=== PATIENT | female | born 1945 | race Caucasian/White ===

== ENCOUNTER 2018-02-25 20:44 | Inpatient (IN) | payer OTHER ==
[2018-02-25] MEDS ORDERED: ONDANSETRON 4 MG INJ (20:57)
[2018-02-25] MEDS: HYDROmorphONE 0.5 MG/0.5 ML SYG IV ×2 (21:02→22:40)
[2018-02-25] MEDS: ONDANSETRON 4 MG INJ IV ×3 (21:03→22:41)
[2018-02-25 21:20] LABS: ADD MAN DIFF? NO
[2018-02-25 21:22] LABS: BASOPHILS % 0.6 % (0.0-2.0); EOSINOPHILS # 0.7 10^3/ul (0.0-0.5); HEMATOCRIT 31.1 % (37.0-47.0); HEMOGLOBIN 10.1 g/dl (12.0-16.0); LYMPHOCYTES # 2.4 10^3/ul (0.8-2.9); LYMPHOCYTES % 34.5 % (15.0-51.0); MEAN CORPUSCULAR HEMOGLOBIN 27.7 pg (29.0-33.0); MEAN CORPUSCULAR HGB CONC 32.5 g/dl (32.0-37.0); MEAN CORPUSCULAR VOLUME 85.2 fl (82.0-101.0); MEAN PLATELET VOLUME 10.2 fl (7.4-10.4); MONOCYTE # 0.6 10^3/ul (0.3-0.9); NEUTROPHIL # 3.2 10^3/ul (1.6-7.5); NEUTROPHILS % 46.5 % (39.0-77.0); PLATELET COUNT 230 10^3/UL (140-415); RED BLOOD COUNT 3.65 10^6/ul (4.20-5.40); RED CELL DISTRIBUTION WIDTH 13.6 % (11.5-14.5)
[2018-02-25] MEDS: SOD CHLORIDE 0.9% 1,000 ML IV (21:22)
[2018-02-25 21:29] LABS: INR 0.93; PROTIME 12.5 Sec (11.9-14.9)
[2018-02-25 21:30] LABS: ALANINE AMINOTRANSFERASE 23 IU/L (13-69); ALBUMIN 3.4 g/dl (3.3-4.9); ALBUMIN/GLOBULIN RATIO 1.06; ALKALINE PHOSPHATASE 77 IU/L (42-121); ANION GAP 18 (8-16); ASPARTATE AMINO TRANSFERASE 20 IU/L (15-46); BILIRUBIN,INDIRECT 0.4 mg/dl (0-1.1); BILIRUBIN,TOTAL 0.4 mg/dl (0.2-1.3); BLOOD UREA NITROGEN 34 mg/dl (7-20); CALCIUM 9.3 mg/dl (8.4-10.2); CARBON DIOXIDE 21 mmol/L (21-31); CHLORIDE 104 mmol/L (97-110); CREATININE 1.35 mg/dl (0.44-1.00); GLUCOSE 145 mg/dl (70-220); LIPASE 1433 U/L (23-300); PARTIAL THROMBOPLASTIN TIME 31.3 Sec (23.0-35.0); SODIUM 138 mmol/L (135-144); TOTAL PROTEIN 6.6 g/dl (6.1-8.1)
[2018-02-25 21:41] LABS: TROPONIN-I < 0.012 ng/ml (0.000-0.120)
[2018-02-25] MEDS ORDERED: KETOROLAC 30 MG INJ (21:59)
[2018-02-25] MEDS: HYDROmorphONE 1 MG/ML SYG IV (22:11)
[2018-02-25] MEDS: KETOROLAC 30 MG INJ IV (22:24)
[2018-02-25] MEDS: KETOROLAC 15 MG INJ IV (22:41)
[2018-02-26] MEDS ORDERED: NACL 0.9% 3 ML SYG IV
[2018-02-26] MEDS ORDERED: ALBUTEROL/IPRATROPIUM (NEB) 3 ML AMP HHN
[2018-02-26] MEDS ORDERED: GLUCOSE GEL 15 GRAM TUBE BUCCAL (00:15)
[2018-02-26] MEDS ORDERED: GLUCAGON 1 MG INJ IM (00:15)
[2018-02-26] MEDS ORDERED: GLUCOSE GEL 15 GRAM TUBE PO ×2 (00:15)
[2018-02-26] MEDS ORDERED: DEXTROSE 50% 50 ML SYRINGE IV ×2 (00:15)
[2018-02-26] MEDS: DEXTROSE 5%-0.45% NACL 1,000 ML IV (01:01)
[2018-02-26] MEDS: morphine 2 MG INJ IV ×2 (01:09→08:11)
[2018-02-26] MEDS: ACCU-CHEK XX ×3 (01:23→21:40)
[2018-02-26] MEDS: INSULIN ASPART [NOVOLOG] 3 ML PEN SC ×4 (07:50→21:42)
[2018-02-26 11:30] LABS: ADD MAN DIFF? NO
[2018-02-26 11:38] LABS: BASOPHILS % 0.5 % (0.0-2.0); EOSINOPHILS # 0.2 10^3/ul (0.0-0.5); EOSINOPHILS % 3.5 % (0.0-7.0); HEMATOCRIT 29.6 % (37.0-47.0); HEMOGLOBIN 9.4 g/dl (12.0-16.0); LYMPHOCYTES # 1.2 10^3/ul (0.8-2.9); LYMPHOCYTES % 19.4 % (15.0-51.0); MEAN CORPUSCULAR HEMOGLOBIN 27.4 pg (29.0-33.0); MEAN CORPUSCULAR HGB CONC 31.8 g/dl (32.0-37.0); MEAN CORPUSCULAR VOLUME 86.3 fl (82.0-101.0); MEAN PLATELET VOLUME 10.4 fl (7.4-10.4); MONOCYTE # 0.5 10^3/ul (0.3-0.9); MONOCYTES % 8.3 % (0.0-11.0); NEUTROPHIL # 4.1 10^3/ul (1.6-7.5); NEUTROPHILS % 67.8 % (39.0-77.0); PLATELET COUNT 199 10^3/UL (140-415); RED BLOOD COUNT 3.43 10^6/ul (4.20-5.40); RED CELL DISTRIBUTION WIDTH 13.8 % (11.5-14.5)
[2018-02-26 12:17] LABS: ALANINE AMINOTRANSFERASE 29 IU/L (13-69); ALBUMIN 3.1 g/dl (3.3-4.9); ALBUMIN/GLOBULIN RATIO 1.06; ALKALINE PHOSPHATASE 74 IU/L (42-121); ANION GAP 13 (8-16); ASPARTATE AMINO TRANSFERASE 20 IU/L (15-46); BILIRUBIN,INDIRECT 0.7 mg/dl (0-1.1); BILIRUBIN,TOTAL 0.7 mg/dl (0.2-1.3); BLOOD UREA NITROGEN 32 mg/dl (7-20); CALCIUM 8.5 mg/dl (8.4-10.2); CARBON DIOXIDE 23 mmol/L (21-31); CHLORIDE 105 mmol/L (97-110); CREATININE 1.27 mg/dl (0.44-1.00); GLUCOSE 196 mg/dl (70-220); MAGNESIUM 1.5 mg/dl (1.7-2.5); PHOSPHORUS 3.5 mg/dl (2.5-4.9); POTASSIUM 4.7 mmol/L (3.5-5.1); SODIUM 136 mmol/L (135-144)
[2018-02-26] MEDS: LINAGLIPTIN 5 MG TABLET PO (12:42)
[2018-02-26] MEDS: LISINOPRIL 10 MG TAB PO (12:48)
[2018-02-26] MEDS: LACTATED RINGER'S 500 ML IV ×2 (12:53→19:10)
[2018-02-26 12:59] LABS: ADD UMIC NO; UR ASCORBIC ACID NEGATIVE (NEGATIVE); UR BILIRUBIN (Dip) NEGATIVE (NEGATIVE); UR BLOOD (Dip) NEGATIVE (NEGATIVE); UR CLARITY SLIGHTLY CLOUDY (CLEAR); UR COLOR YELLOW (YELLOW); UR GLUCOSE (Dip) NEGATIVE (NEGATIVE); UR KETONES (Dip) NEGATIVE (NEGATIVE); UR LEUKOCYTE ESTERASE (Dip) NEGATIVE Leu/ul (NEGATIVE); UR NITRITE (Dip) NEGATIVE (NEGATIVE); UR RBC 1 /HPF (0-5); UR SPECIFIC GRAVITY (Dip) 1.012 (1.003-1.030); UR TOTAL PROTEIN (Dip) NEGATIVE (NEGATIVE); UR UROBILINOGEN (Dip) NEGATIVE (NEGATIVE); UR WBC 0 /HPF (0-5)
[2018-02-26 13:02] LABS: IRON 73 ug/dl (35-150)
[2018-02-26 13:24] LABS: % IRON SATURATION 23 % SAT (22-52); TOTAL IRON BINDING CAPACITY 311 ug/dl (241-421)
[2018-02-26 14:33] LABS: ALANINE AMINOTRANSFERASE 23 IU/L (13-69); ALBUMIN 2.8 g/dl (3.3-4.9); ALBUMIN/GLOBULIN RATIO 1.03; ALKALINE PHOSPHATASE 62 IU/L (42-121); AMYLASE 125 U/L (11-123); ANION GAP 14 (8-16); ASPARTATE AMINO TRANSFERASE 20 IU/L (15-46); BILIRUBIN,INDIRECT 0.7 mg/dl (0-1.1); BILIRUBIN,TOTAL 0.7 mg/dl (0.2-1.3); BLOOD UREA NITROGEN 31 mg/dl (7-20); CALCIUM 8.3 mg/dl (8.4-10.2); CARBON DIOXIDE 21 mmol/L (21-31); CHLORIDE 105 mmol/L (97-110); CREATININE 1.21 mg/dl (0.44-1.00); GLUCOSE 163 mg/dl (70-220); LIPASE 347 U/L (23-300); POTASSIUM 4.6 mmol/L (3.5-5.1); SODIUM 135 mmol/L (135-144); TOTAL PROTEIN 5.5 g/dl (6.1-8.1)
[2018-02-26 15:21] LABS: HEPATITIS C VIRAL ANTIBODY NEGATIVE (NEGATIVE)
[2018-02-26] MEDS: HYDROmorphONE 1 MG/ML SYG IV ×2 (15:45→20:40)
[2018-02-26] MEDS: ONDANSETRON 4 MG INJ IV (17:10)
[2018-02-26] MEDS: ATORVASTATIN 40 MG TAB PO (20:39)
[2018-02-26] MEDS ORDERED: NON-FORMULARY/PATIENT OWN MED (Carvedilol* 3.125 MG) PO (21:00)
[2018-02-27] MEDS: ACCU-CHEK XX ×5 (02:00→20:55)
[2018-02-27] MEDS: LACTATED RINGER'S 1,000 ML IV (02:06)
[2018-02-27 03:13] LABS: ADD MAN DIFF? NO
[2018-02-27 03:15] LABS: WHITE BLOOD COUNT 6.8 10^3/ul (4.8-10.8)
[2018-02-27 03:15] LABS: BASOPHILS % 0.3 % (0.0-2.0); EOSINOPHILS # 0.3 10^3/ul (0.0-0.5); EOSINOPHILS % 4.3 % (0.0-7.0); HEMATOCRIT 34.7 % (37.0-47.0); HEMOGLOBIN 11.1 g/dl (12.0-16.0); LYMPHOCYTES # 1.7 10^3/ul (0.8-2.9); LYMPHOCYTES % 24.7 % (15.0-51.0); MEAN CORPUSCULAR HEMOGLOBIN 27.5 pg (29.0-33.0); MEAN CORPUSCULAR VOLUME 85.9 fl (82.0-101.0); MONOCYTE # 0.6 10^3/ul (0.3-0.9); MONOCYTES % 8.4 % (0.0-11.0); NEUTROPHIL # 4.2 10^3/ul (1.6-7.5); NEUTROPHILS % 61.9 % (39.0-77.0); PLATELET COUNT 162 10^3/UL (140-415); RED BLOOD COUNT 4.04 10^6/ul (4.20-5.40); RED CELL DISTRIBUTION WIDTH 13.6 % (11.5-14.5)
[2018-02-27] MEDS: LEVOTHYROXINE 75 MCG TAB PO (06:24)
[2018-02-27] MEDS ORDERED: EPHEDrine SULFATE 50 MG/5 ML SYG (07:00)
[2018-02-27] MEDS ORDERED: ETOMIDATE 20 MG INJ (07:00)
[2018-02-27] MEDS ORDERED: NEOSTIGMINE 3 MG/3 ML SYRINGE (07:00)
[2018-02-27] MEDS: HYDROmorphONE 1 MG/ML SYG IV ×2 (07:13→09:58)
[2018-02-27] MEDS: LISINOPRIL 10 MG TAB PO (09:00)
[2018-02-27] MEDS: LINAGLIPTIN 5 MG TABLET PO (09:00)
[2018-02-27] MEDS: INSULIN ASPART [NOVOLOG] 3 ML PEN SC ×4 (09:34→20:54)
[2018-02-27] MEDS: ONDANSETRON 4 MG INJ IV ×2 (10:51→15:36)
[2018-02-27] MEDS ORDERED: HYDROmorphONE 1 MG/5 ML IV SYRINGE IV ×2 (12:00)
[2018-02-27] MEDS ORDERED: LABETALOL HCL 20MG INJ IV (12:00)
[2018-02-27] MEDS ORDERED: hydrALAzine 20 MG INJ IV (12:00)
[2018-02-27] MEDS ORDERED: EPHEDrine SULFATE 50 MG/5 ML SYG IV (12:00)
[2018-02-27] MEDS ORDERED: ONDANSETRON 4 MG INJ (12:26)
[2018-02-27] MEDS ORDERED: METOCLOPRAMIDE 10 MG INJ (12:26)
[2018-02-27] MEDS ORDERED: MIDAZOLAM 1 MG/ML 2 ML INJ (12:26)
[2018-02-27] MEDS ORDERED: HYDROmorphONE 2 MG/ML SYG (12:26)
[2018-02-27] MEDS ORDERED: ROCURONIUM 50 MG INJ (12:27)
[2018-02-27] MEDS ORDERED: ROPIVACAINE 0.5 % 30 ML VIAL (12:27)
[2018-02-27] MEDS ORDERED: FENTAnyl 50 MCG/ML VIAL (12:38)
[2018-02-27] MEDS ORDERED: CEFAZOLIN 1 GM INJ (13:16)
[2018-02-27] MEDS ORDERED: GLYCOPYRROLATE 0.4 MG INJ (13:16)
[2018-02-27] MEDS: POLYMYXIN/BACITRACIN 1L IRRIG (13:21)
[2018-02-27] MEDS ORDERED: DEXTROSE 5%-LR 1,000 ML IV (14:49)
[2018-02-27] MEDS ORDERED: CEFAZOLIN 1 GM/50 ML (PMX) 50 ML IVPB (15:00)
[2018-02-27] MEDS ORDERED: NACL 0.9% 3 ML SYG IV (15:00)
[2018-02-27] MEDS: DIPHENHYDRAMINE 50 MG INJ IV (15:28)
[2018-02-27] MEDS: MEPERIDINE 25 MG INJ IV (15:35)
[2018-02-27] MEDS: HYDROmorphONE 1 MG/5 ML IV SYRINGE IV (16:09)
[2018-02-27] MEDS: SOD CHLORIDE 0.9% 1,000 ML IV (16:53)
[2018-02-27] MEDS: ATORVASTATIN 40 MG TAB PO (20:46)
[2018-02-27] MEDS: CEFAZOLIN 1 GM/50 ML (PMX) 50 ML IVPB (20:46)
[2018-02-28] MEDS: HYDROmorphONE 2 MG/ML SYG IV ×2 (01:00→08:18)
[2018-02-28] MEDS: ACCU-CHEK XX ×5 (02:34→20:16)
[2018-02-28 03:52] LABS: TROPONIN-I < 0.012 ng/ml (0.000-0.120)
[2018-02-28] MEDS: CEFAZOLIN 1 GM/50 ML (PMX) 50 ML IVPB ×2 (05:24→12:17)
[2018-02-28] MEDS: LEVOTHYROXINE 75 MCG TAB PO ×2 (06:11→08:18)
[2018-02-28] MEDS: LISINOPRIL 10 MG TAB PO (08:18)
[2018-02-28] MEDS: LINAGLIPTIN 5 MG TABLET PO (08:18)
[2018-02-28] MEDS: INSULIN ASPART [NOVOLOG] 3 ML PEN SC ×6 (08:27→20:16)
[2018-02-28] MEDS: ENOXAPARIN 40 MG/0.4 ML SYG SC (08:33)
[2018-02-28] MEDS: SOD CHLORIDE 0.9% 1,000 ML IV (09:40)
[2018-02-28 12:18] LABS: ADD MAN DIFF? NO
[2018-02-28 12:20] LABS: WHITE BLOOD COUNT 6.5 10^3/ul (4.8-10.8)
[2018-02-28 12:20] LABS: BASOPHILS % 0.3 % (0.0-2.0); EOSINOPHILS # 0.2 10^3/ul (0.0-0.5); EOSINOPHILS % 2.6 % (0.0-7.0); HEMATOCRIT 22.4 % (37.0-47.0); HEMOGLOBIN 7.3 g/dl (12.0-16.0); LYMPHOCYTES # 1.4 10^3/ul (0.8-2.9); LYMPHOCYTES % 21.5 % (15.0-51.0); MEAN CORPUSCULAR HEMOGLOBIN 27.9 pg (29.0-33.0); MEAN CORPUSCULAR HGB CONC 32.6 g/dl (32.0-37.0); MEAN CORPUSCULAR VOLUME 85.5 fl (82.0-101.0); MEAN PLATELET VOLUME 10.7 fl (7.4-10.4); MONOCYTE # 0.7 10^3/ul (0.3-0.9); MONOCYTES % 10.6 % (0.0-11.0); NEUTROPHIL # 4.2 10^3/ul (1.6-7.5); NEUTROPHILS % 64.7 % (39.0-77.0); PLATELET COUNT 153 10^3/UL (140-415); RED BLOOD COUNT 2.62 10^6/ul (4.20-5.40)
[2018-02-28 12:30] LABS: HEMOGLOBIN A1C 7.3 % (0-5.9)
[2018-02-28 12:42] LABS: CHOL/HDL RATIO 1.4 RATIO; HDL CHOLESTEROL 52 mg/dl (33-92); LDL CHOLESTEROL,CALCULATED 7 mg/dl; TRIGLYCERIDES 79 mg/dl (0-149)
[2018-02-28 12:42] LABS: CHOLESTEROL 75 mg/dl (100-200)
[2018-02-28 12:44] LABS: ALANINE AMINOTRANSFERASE 31 IU/L (13-69); ALBUMIN 2.5 g/dl (3.3-4.9); ALBUMIN/GLOBULIN RATIO 0.96; ALKALINE PHOSPHATASE 53 IU/L (42-121); AMYLASE 48 U/L (11-123); ANION GAP 12 (8-16); ASPARTATE AMINO TRANSFERASE 31 IU/L (15-46); BILIRUBIN,INDIRECT 0.7 mg/dl (0-1.1); BILIRUBIN,TOTAL 0.7 mg/dl (0.2-1.3); BLOOD UREA NITROGEN 22 mg/dl (7-20); CALCIUM 8.2 mg/dl (8.4-10.2); CARBON DIOXIDE 23 mmol/L (21-31); CHLORIDE 103 mmol/L (97-110); CREATINE KINASE 484 IU/L (23-200); CREATININE 1.19 mg/dl (0.44-1.00); GLUCOSE 201 mg/dl (70-220); LIPASE 71 U/L (23-300); MAGNESIUM 1.3 mg/dl (1.7-2.5); PHOSPHORUS 3.8 mg/dl (2.5-4.9); POTASSIUM 4.5 mmol/L (3.5-5.1); SODIUM 133 mmol/L (135-144); TOTAL PROTEIN 5.1 g/dl (6.1-8.1)
[2018-02-28 12:57] LABS: CK INDEX 0.7; CK-MB 3.31 ng/ml (0.0-2.4); TROPONIN-I 0.025 ng/ml (0.000-0.120)
[2018-02-28 13:01] LABS: FREE THYROXINE INDEX (Calc) 3.53 ug/ml (0.65-3.89); T3 UPTAKE 41.5 % (23.5-40.5); T4 (THYROXINE) 8.5 ug/dl (5.5-11.0)
[2018-02-28] MEDS: HYDROmorphONE 1 MG/ML SYG IV (14:43)
[2018-02-28] MEDS ORDERED: HYDROmorphONE 2 MG TAB PO ×2 (16:30)
[2018-02-28] MEDS: morphine 2 MG INJ IV ×2 (17:46→21:19)
[2018-02-28] MEDS: ATORVASTATIN 40 MG TAB PO (20:11)
[2018-02-28] MEDS: HYDROCODONE/APAP (5/325) TAB PO (20:11)
[2018-03-01] MEDS: MAGNESIUM SULFATE 3 GM in DEXTROSE 5% 100 ML IVPB (01:01)
[2018-03-01] MEDS: morphine 2 MG INJ IV ×4 (01:22→18:14)
[2018-03-01] MEDS: INSULIN ASPART [NOVOLOG] 3 ML PEN SC ×8 (01:43→21:00)
[2018-03-01] MEDS: ACCU-CHEK XX ×5 (01:44→21:23)
[2018-03-01] MEDS: SOD CHLORIDE 0.9% 1,000 ML IV ×2 (02:20→19:31)
[2018-03-01] MEDS: LEVOTHYROXINE 75 MCG TAB PO (06:08)
[2018-03-01 06:56] LABS: ADD MAN DIFF? NO
[2018-03-01 07:01] LABS: WHITE BLOOD COUNT 5.4 10^3/ul (4.8-10.8)
[2018-03-01 07:01] LABS: ABNORMAL IP MESSAGE 1; BASOPHILS % 0.4 % (0.0-2.0); EOSINOPHILS # 0.2 10^3/ul (0.0-0.5); EOSINOPHILS % 2.8 % (0.0-7.0); HEMATOCRIT 20.4 % (37.0-47.0); LYMPHOCYTES # 1.2 10^3/ul (0.8-2.9); MEAN CORPUSCULAR HGB CONC 31.9 g/dl (32.0-37.0); MEAN CORPUSCULAR VOLUME 87.9 fl (82.0-101.0); MEAN PLATELET VOLUME 10.8 fl (7.4-10.4); MONOCYTE # 0.5 10^3/ul (0.3-0.9); MONOCYTES % 9.4 % (0.0-11.0); NEUTROPHIL # 3.5 10^3/ul (1.6-7.5); RED BLOOD COUNT 2.32 10^6/ul (4.20-5.40)
[2018-03-01 07:11] LABS: HEMOGLOBIN 6.5 g/dl (12.0-16.0); PLATELET COUNT 113 10^3/UL (140-415); POSITIVE DIFF @See below
[2018-03-01 07:36] LABS: ALANINE AMINOTRANSFERASE 17 IU/L (13-69); ALBUMIN 2.6 g/dl (3.3-4.9); ALKALINE PHOSPHATASE 54 IU/L (42-121); ASPARTATE AMINO TRANSFERASE 46 IU/L (15-46); BILIRUBIN,INDIRECT 0.5 mg/dl (0-1.1); BILIRUBIN,TOTAL 0.5 mg/dl (0.2-1.3)
[2018-03-01 07:40] LABS: ANION GAP 10 (8-16); BLOOD UREA NITROGEN 15 mg/dl (7-20); CARBON DIOXIDE 23 mmol/L (21-31); CHLORIDE 104 mmol/L (97-110); CREATININE 1.06 mg/dl (0.44-1.00); GLUCOSE 191 mg/dl (70-220); POTASSIUM 4.2 mmol/L (3.5-5.1); SODIUM 133 mmol/L (135-144)
[2018-03-01] MEDS ORDERED: INSULIN GLARGINE [LANTus] (100 UNITS/ML) SYG SC (08:00)
[2018-03-01 08:12] LABS: ANISOCYTOSIS 1+ (0-0); BAND NEUTROPHILS #M 0.1 10^3/ul (0.0-0.6); BAND NEUTROPHILS % (M) 3 % (0-4); BASOPHILS % (M) 1 % (0-2); BURR CELLS 1+ (0-0); EOSINOPHILS % (M) 3 % (0-7); LYMPHOCYTES #M 1.5 10^3/ul (0.8-2.9); LYMPHOCYTES % (M) 28 % (15-51); MICROCYTOSIS 1+ (0-0); MONOCYTE #M 0.2 10^3/ul (0.3-0.9); MONOCYTES % (M) 5 % (0-11); OVALOCYTES 1+ (0-0); PLATELET ESTIMATE DECREASED; POIKILOCYTOSIS 1+ (0-0); POLYCHROMASIA 1+ (0-0); SEG NEUT #M 3.2 10^3/ul (1.6-7.5); SEGMENTED NEUTROPHILS (M) % 60 % (39-77); SMUDGE%M 84 % (0-0)
[2018-03-01] MEDS: INSULIN GLARGINE [LANTus] (100 UNITS/ML) SYG SC (08:29)
[2018-03-01] MEDS: ENOXAPARIN 40 MG/0.4 ML SYG SC (08:41)
[2018-03-01] MEDS: IODIXANOL LOCM 100 ML BTL (08:52)
[2018-03-01] MEDS: SOD CHLORIDE 0.9% 100 ML (08:52)
[2018-03-01] MEDS: LINAGLIPTIN 5 MG TABLET PO (09:21)
[2018-03-01] MEDS: LISINOPRIL 10 MG TAB PO (09:58)
[2018-03-01 10:42] LABS: CREATINE KINASE 502 IU/L (23-200)
[2018-03-01 10:55] LABS: CK INDEX 3.5
[2018-03-01] MEDS: FUROSEMIDE 20 MG INJ IV (13:00)
[2018-03-01 13:38] LABS: IMMEDIATE SPIN CROSSMATCH 1 4
[2018-03-01] MEDS: PANTOPRAZOLE (EC) 40 MG TAB PO ×2 (14:14→21:17)
[2018-03-01] MEDS: ONDANSETRON 4 MG INJ IV (18:41)
[2018-03-01] MEDS: ATORVASTATIN 40 MG TAB PO (21:17)
[2018-03-01] MEDS: AL HYDROX/MG HYDROX/SIMETH 30 ML CUP PO (23:44)
[2018-03-02 00:28] LABS: IMMEDIATE SPIN CROSSMATCH 1 2
[2018-03-02] MEDS: morphine 2 MG INJ IV ×3 (00:28→13:11)
[2018-03-02] MEDS: ACCU-CHEK XX ×4 (02:00→20:37)
[2018-03-02] MEDS: PANTOPRAZOLE (EC) 40 MG TAB PO ×2 (06:11→18:29)
[2018-03-02] MEDS: LEVOTHYROXINE 75 MCG TAB PO (06:11)
[2018-03-02 06:16] LABS: ADD MAN DIFF? NO
[2018-03-02 06:30] LABS: BASOPHILS % 0.2 % (0.0-2.0); EOSINOPHILS # 0.1 10^3/ul (0.0-0.5); EOSINOPHILS % 1.2 % (0.0-7.0); HEMATOCRIT 28.6 % (37.0-47.0); HEMOGLOBIN 9.5 g/dl (12.0-16.0); LYMPHOCYTES % 15.1 % (15.0-51.0); MEAN CORPUSCULAR HEMOGLOBIN 28.6 pg (29.0-33.0); MEAN CORPUSCULAR HGB CONC 33.2 g/dl (32.0-37.0); MEAN CORPUSCULAR VOLUME 86.1 fl (82.0-101.0); MEAN PLATELET VOLUME 10.4 fl (7.4-10.4); MONOCYTE # 0.7 10^3/ul (0.3-0.9); MONOCYTES % 9.9 % (0.0-11.0); NEUTROPHIL # 4.8 10^3/ul (1.6-7.5); NEUTROPHILS % 73.3 % (39.0-77.0); PLATELET COUNT 138 10^3/UL (140-415); RED BLOOD COUNT 3.32 10^6/ul (4.20-5.40)
[2018-03-02 06:30] LABS: WHITE BLOOD COUNT 6.6 10^3/ul (4.8-10.8)
[2018-03-02 07:38] LABS: ANION GAP 10 (8-16); BLOOD UREA NITROGEN 13 mg/dl (7-20); CALCIUM 7.6 mg/dl (8.4-10.2); CARBON DIOXIDE 24 mmol/L (21-31); CHLORIDE 104 mmol/L (97-110); CREATININE 1.04 mg/dl (0.44-1.00); GLUCOSE 147 mg/dl (70-220); POTASSIUM 3.5 mmol/L (3.5-5.1); SODIUM 134 mmol/L (135-144)
[2018-03-02] MEDS: INSULIN ASPART [NOVOLOG] 3 ML PEN SC ×7 (07:55→20:37)
[2018-03-02] MEDS: INSULIN GLARGINE [LANTus] (100 UNITS/ML) SYG SC (08:31)
[2018-03-02] MEDS: LINAGLIPTIN 5 MG TABLET PO (09:14)
[2018-03-02] MEDS: ASPIRIN (EC) 81 MG TAB PO (09:14)
[2018-03-02] MEDS: LISINOPRIL 10 MG TAB PO (09:15)
[2018-03-02] MEDS: ENOXAPARIN 40 MG/0.4 ML SYG SC (09:20)
[2018-03-02 11:05] LABS: ADD MAN DIFF? NO
[2018-03-02 11:07] LABS: BASOPHILS % 0.3 % (0.0-2.0); EOSINOPHILS # 0.1 10^3/ul (0.0-0.5); EOSINOPHILS % 1.9 % (0.0-7.0); HEMOGLOBIN 10.5 g/dl (12.0-16.0); LYMPHOCYTES # 0.9 10^3/ul (0.8-2.9); LYMPHOCYTES % 12.2 % (15.0-51.0); MEAN CORPUSCULAR HEMOGLOBIN 29.1 pg (29.0-33.0); MEAN CORPUSCULAR HGB CONC 33.9 g/dl (32.0-37.0); MEAN CORPUSCULAR VOLUME 85.9 fl (82.0-101.0); MEAN PLATELET VOLUME 10.4 fl (7.4-10.4); MONOCYTE # 0.7 10^3/ul (0.3-0.9); MONOCYTES % 10.1 % (0.0-11.0); NEUTROPHIL # 5.2 10^3/ul (1.6-7.5); NEUTROPHILS % 75.1 % (39.0-77.0); PLATELET COUNT 147 10^3/UL (140-415); RED BLOOD COUNT 3.61 10^6/ul (4.20-5.40); RED CELL DISTRIBUTION WIDTH 14.1 % (11.5-14.5)
[2018-03-02 11:23] LABS: CREATINE KINASE 296 IU/L (23-200)
[2018-03-02 11:36] LABS: CK INDEX 2.1; CK-MB 6.25 ng/ml (0.0-2.4)
[2018-03-02] MEDS: SOD CHLORIDE 0.9% 1,000 ML IV (14:47)
[2018-03-02] MEDS: LORAZEPAM 2 MG INJ IV (15:03)
[2018-03-02] MEDS: ATORVASTATIN 80 MG TAB PO (20:28)
[2018-03-02] MEDS: ACETAMINOPHEN 1000MG/100ML IV 100 ML IVPB (20:28)
[2018-03-02] MEDS: SENNA TAB PO (20:28)
[2018-03-02] MEDS: DOCUSATE SODIUM 100 MG CAP PO (20:28)
[2018-03-02] MEDS: METOPROLOL 25 MG TAB PO (20:29)
[2018-03-02] MEDS: morphine 4 MG/ML VIAL IV (20:29)
[2018-03-03] MEDS: ACCU-CHEK XX ×5 (01:25→21:03)
[2018-03-03] MEDS: ACETAMINOPHEN 1000MG/100ML IV 100 ML IVPB ×3 (04:16→18:23)
[2018-03-03] MEDS: SOD CHLORIDE 0.9% 1,000 ML IV ×2 (05:06→21:03)
[2018-03-03] MEDS: PANTOPRAZOLE (EC) 40 MG TAB PO ×2 (05:06→17:41)
[2018-03-03 05:34] LABS: ADD MAN DIFF? NO
[2018-03-03 05:37] LABS: WHITE BLOOD COUNT 5.4 10^3/ul (4.8-10.8)
[2018-03-03 05:37] LABS: BASOPHILS % 0.6 % (0.0-2.0); EOSINOPHILS # 0.2 10^3/ul (0.0-0.5); EOSINOPHILS % 4.4 % (0.0-7.0); HEMATOCRIT 28.1 % (37.0-47.0); HEMOGLOBIN 9.5 g/dl (12.0-16.0); LYMPHOCYTES # 0.9 10^3/ul (0.8-2.9); LYMPHOCYTES % 17.3 % (15.0-51.0); MEAN CORPUSCULAR HGB CONC 33.8 g/dl (32.0-37.0); MEAN CORPUSCULAR VOLUME 85.7 fl (82.0-101.0); MONOCYTE # 0.5 10^3/ul (0.3-0.9); MONOCYTES % 8.3 % (0.0-11.0); NEUTROPHIL # 3.8 10^3/ul (1.6-7.5); PLATELET COUNT 155 10^3/UL (140-415); RED BLOOD COUNT 3.28 10^6/ul (4.20-5.40); RED CELL DISTRIBUTION WIDTH 14.2 % (11.5-14.5)
[2018-03-03 05:59] LABS: MAGNESIUM 1.8 mg/dl (1.7-2.5)
[2018-03-03 05:59] LABS: ANION GAP 9 (8-16); BLOOD UREA NITROGEN 11 mg/dl (7-20); CALCIUM 7.6 mg/dl (8.4-10.2); CARBON DIOXIDE 26 mmol/L (21-31); CHLORIDE 105 mmol/L (97-110); CREATININE 1.01 mg/dl (0.44-1.00); GLUCOSE 103 mg/dl (70-220); POTASSIUM 3.5 mmol/L (3.5-5.1); SODIUM 136 mmol/L (135-144)
[2018-03-03] MEDS: LEVOTHYROXINE 75 MCG TAB PO (06:22)
[2018-03-03] MEDS: INSULIN ASPART [NOVOLOG] 3 ML PEN SC ×7 (07:35→21:00)
[2018-03-03] MEDS: INSULIN GLARGINE [LANTus] (100 UNITS/ML) SYG SC (07:54)
[2018-03-03] MEDS: LINAGLIPTIN 5 MG TABLET PO (08:00)
[2018-03-03] MEDS: DOCUSATE SODIUM 100 MG CAP PO ×2 (08:00→21:00)
[2018-03-03] MEDS: LISINOPRIL 10 MG TAB PO (08:00)
[2018-03-03] MEDS: METOPROLOL 25 MG TAB PO ×2 (08:02→21:02)
[2018-03-03 11:07] LABS: CREATINE KINASE 164 IU/L (23-200)
[2018-03-03 11:20] LABS: CK INDEX 1.8; CK-MB 2.87 ng/ml (0.0-2.4)
[2018-03-03] MEDS: CLOPIDOGREL 75 MG TAB PO (12:05)
[2018-03-03] MEDS: POTASSIUM CHLORIDE 20 MEQ POWDER FOR ORAL SOLN PO (12:05)
[2018-03-03] MEDS: ASPIRIN 81 MG TAB PO (12:05)
[2018-03-03] MEDS: MAGNESIUM SULFATE 2 GM/50 ML 50 ML IVPB (12:06)
[2018-03-03] MEDS: ATORVASTATIN 80 MG TAB PO (21:00)
[2018-03-03] MEDS: SENNA TAB PO (21:02)
[2018-03-03] MEDS: HYDROCODONE/APAP (7.5/325) TAB PO (21:38)
[2018-03-03] MEDS: LORAZEPAM 2 MG INJ IV (21:55)
[2018-03-04] MEDS: ACCU-CHEK XX ×5 (02:29→20:40)
[2018-03-04 05:03] LABS: ADD MAN DIFF? NO
[2018-03-04 05:04] LABS: BASOPHILS % 0.6 % (0.0-2.0); EOSINOPHILS # 0.3 10^3/ul (0.0-0.5); EOSINOPHILS % 6.3 % (0.0-7.0); HEMATOCRIT 35.7 % (37.0-47.0); HEMOGLOBIN 11.7 g/dl (12.0-16.0); LYMPHOCYTES # 0.9 10^3/ul (0.8-2.9); LYMPHOCYTES % 17.4 % (15.0-51.0); MEAN CORPUSCULAR HEMOGLOBIN 28.5 pg (29.0-33.0); MEAN CORPUSCULAR HGB CONC 32.8 g/dl (32.0-37.0); MEAN CORPUSCULAR VOLUME 86.9 fl (82.0-101.0); MEAN PLATELET VOLUME 11.7 fl (7.4-10.4); MONOCYTE # 0.6 10^3/ul (0.3-0.9); MONOCYTES % 10.4 % (0.0-11.0); NEUTROPHIL # 3.5 10^3/ul (1.6-7.5); NEUTROPHILS % 64.9 % (39.0-77.0); PLATELET COUNT 166 10^3/UL (140-415); RED BLOOD COUNT 4.11 10^6/ul (4.20-5.40); RED CELL DISTRIBUTION WIDTH 14.6 % (11.5-14.5)
[2018-03-04 05:04] LABS: WHITE BLOOD COUNT 5.4 10^3/ul (4.8-10.8)
[2018-03-04] MEDS: PANTOPRAZOLE (EC) 40 MG TAB PO ×2 (06:44→17:57)
[2018-03-04] MEDS: LEVOTHYROXINE 75 MCG TAB PO (06:45)
[2018-03-04 06:56] LABS: ANION GAP 7 (8-16); BLOOD UREA NITROGEN 14 mg/dl (7-20); CALCIUM 7.6 mg/dl (8.4-10.2); CARBON DIOXIDE 26 mmol/L (21-31); CHLORIDE 110 mmol/L (97-110); CREATINE KINASE 125 IU/L (23-200); CREATININE 1.03 mg/dl (0.44-1.00); GLUCOSE 78 mg/dl (70-220); SODIUM 139 mmol/L (135-144)
[2018-03-04 06:56] LABS: MAGNESIUM 2.4 mg/dl (1.7-2.5)
[2018-03-04 07:07] LABS: CK INDEX 2.9; CK-MB 3.58 ng/ml (0.0-2.4)
[2018-03-04] MEDS: INSULIN ASPART [NOVOLOG] 3 ML PEN SC ×7 (07:35→20:39)
[2018-03-04] MEDS: ASPIRIN 81 MG TAB PO (08:10)
[2018-03-04] MEDS: LINAGLIPTIN 5 MG TABLET PO (08:10)
[2018-03-04] MEDS: DOCUSATE SODIUM 100 MG CAP PO ×2 (08:10→20:28)
[2018-03-04] MEDS: LISINOPRIL 10 MG TAB PO (08:12)
[2018-03-04] MEDS: INSULIN GLARGINE [LANTus] (100 UNITS/ML) SYG SC (08:19)
[2018-03-04] MEDS: CLOPIDOGREL 75 MG TAB PO (08:25)
[2018-03-04] MEDS: METOPROLOL 25 MG TAB PO ×2 (08:25→20:25)
[2018-03-04] MEDS: POLYETHYLENE GLYCOL 17 GM PACKET PO (08:25)
[2018-03-04] MEDS: HYDROCODONE/APAP (7.5/325) TAB PO ×2 (11:01→18:58)
[2018-03-04] MEDS: ONDANSETRON 4 MG INJ IV (12:05)
[2018-03-04] MEDS: ACETAMINOPHEN 1000MG/100ML IV 100 ML IVPB (14:19)
[2018-03-04] MEDS: SOD CHLORIDE 0.9% 1,000 ML IV (16:00)
[2018-03-04] MEDS: ATORVASTATIN 80 MG TAB PO (20:18)
[2018-03-04] MEDS: SENNA TAB PO (20:29)
[2018-03-05] MEDS: HYDROCODONE/APAP (7.5/325) TAB PO ×2 (00:11→06:42)
[2018-03-05] MEDS: ACCU-CHEK XX ×5 (02:05→21:06)
[2018-03-05] MEDS: morphine 2 MG INJ IV ×2 (03:37→21:09)
[2018-03-05] MEDS: LEVOTHYROXINE 75 MCG TAB PO (06:02)
[2018-03-05] MEDS: PANTOPRAZOLE (EC) 40 MG TAB PO ×2 (06:02→17:49)
[2018-03-05] MEDS: SOD CHLORIDE 0.9% 1,000 ML IV (06:02)
[2018-03-05 06:41] LABS: ADD MAN DIFF? NO
[2018-03-05 06:46] LABS: WHITE BLOOD COUNT 6.1 10^3/ul (4.8-10.8)
[2018-03-05 06:46] LABS: BASOPHILS % 0.5 % (0.0-2.0); EOSINOPHILS # 0.4 10^3/ul (0.0-0.5); EOSINOPHILS % 6.3 % (0.0-7.0); HEMATOCRIT 33.5 % (37.0-47.0); HEMOGLOBIN 10.8 g/dl (12.0-16.0); LYMPHOCYTES # 1.1 10^3/ul (0.8-2.9); MEAN CORPUSCULAR HEMOGLOBIN 28.5 pg (29.0-33.0); MEAN CORPUSCULAR HGB CONC 32.2 g/dl (32.0-37.0); MEAN CORPUSCULAR VOLUME 88.4 fl (82.0-101.0); MONOCYTE # 0.7 10^3/ul (0.3-0.9); MONOCYTES % 10.7 % (0.0-11.0); NEUTROPHIL # 3.9 10^3/ul (1.6-7.5); NEUTROPHILS % 63.8 % (39.0-77.0); PLATELET COUNT 279 10^3/UL (140-415); RED BLOOD COUNT 3.79 10^6/ul (4.20-5.40); RED CELL DISTRIBUTION WIDTH 14.5 % (11.5-14.5)
[2018-03-05 07:09] LABS: ANION GAP 8 (8-16); BLOOD UREA NITROGEN 15 mg/dl (7-20); CALCIUM 8.1 mg/dl (8.4-10.2); CARBON DIOXIDE 26 mmol/L (21-31); CHLORIDE 108 mmol/L (97-110); CREATININE 0.94 mg/dl (0.44-1.00); GLUCOSE 93 mg/dl (70-220); POTASSIUM 4.3 mmol/L (3.5-5.1); SODIUM 138 mmol/L (135-144)
[2018-03-05] MEDS: INSULIN ASPART [NOVOLOG] 3 ML PEN SC ×7 (07:55→21:00)
[2018-03-05] MEDS: ASPIRIN 81 MG TAB PO (08:56)
[2018-03-05] MEDS: CLOPIDOGREL 75 MG TAB PO (08:56)
[2018-03-05] MEDS: POLYETHYLENE GLYCOL 17 GM PACKET PO (08:56)
[2018-03-05] MEDS: LINAGLIPTIN 5 MG TABLET PO (08:57)
[2018-03-05] MEDS: LISINOPRIL 10 MG TAB PO (08:57)
[2018-03-05] MEDS: DOCUSATE SODIUM 100 MG CAP PO ×2 (08:59→21:05)
[2018-03-05] MEDS: METOPROLOL 25 MG TAB PO ×2 (09:07→21:05)
[2018-03-05] MEDS: INSULIN GLARGINE [LANTus] (100 UNITS/ML) SYG SC (10:38)
[2018-03-05] MEDS: SENNA TAB PO (21:05)
[2018-03-05] MEDS: ATORVASTATIN 80 MG TAB PO (21:05)
[2018-03-05] MEDS: LORAZEPAM 2 MG INJ IV (22:06)
[2018-03-06] MEDS: ACCU-CHEK XX ×5 (02:00→20:15)
[2018-03-06] MEDS: PANTOPRAZOLE (EC) 40 MG TAB PO ×2 (05:51→18:00)
[2018-03-06] MEDS: LEVOTHYROXINE 75 MCG TAB PO (06:14)
[2018-03-06 07:01] LABS: ADD MAN DIFF? NO
[2018-03-06 07:03] LABS: BASOPHILS % 0.5 % (0.0-2.0); EOSINOPHILS # 0.3 10^3/ul (0.0-0.5); EOSINOPHILS % 3.9 % (0.0-7.0); HEMATOCRIT 36.6 % (37.0-47.0); HEMOGLOBIN 11.7 g/dl (12.0-16.0); LYMPHOCYTES # 1.3 10^3/ul (0.8-2.9); LYMPHOCYTES % 16.5 % (15.0-51.0); MEAN CORPUSCULAR HEMOGLOBIN 28.2 pg (29.0-33.0); MEAN CORPUSCULAR VOLUME 88.2 fl (82.0-101.0); MEAN PLATELET VOLUME 9.7 fl (7.4-10.4); MONOCYTE # 0.7 10^3/ul (0.3-0.9); MONOCYTES % 8.3 % (0.0-11.0); NEUTROPHIL # 5.6 10^3/ul (1.6-7.5); NEUTROPHILS % 69.9 % (39.0-77.0); PLATELET COUNT 308 10^3/UL (140-415); RED BLOOD COUNT 4.15 10^6/ul (4.20-5.40); RED CELL DISTRIBUTION WIDTH 14.4 % (11.5-14.5)
[2018-03-06 07:27] LABS: ANION GAP 9 (8-16); BLOOD UREA NITROGEN 14 mg/dl (7-20); CALCIUM 8.6 mg/dl (8.4-10.2); CARBON DIOXIDE 25 mmol/L (21-31); CHLORIDE 107 mmol/L (97-110); CREATININE 0.96 mg/dl (0.44-1.00); GLUCOSE 124 mg/dl (70-220); POTASSIUM 4.4 mmol/L (3.5-5.1); SODIUM 137 mmol/L (135-144)
[2018-03-06] MEDS: INSULIN ASPART [NOVOLOG] 3 ML PEN SC ×7 (07:55→20:14)
[2018-03-06] MEDS: INSULIN GLARGINE [LANTus] (100 UNITS/ML) SYG SC (08:23)
[2018-03-06] MEDS: POLYETHYLENE GLYCOL 17 GM PACKET PO (08:24)
[2018-03-06] MEDS: METOPROLOL 25 MG TAB PO ×2 (08:25→20:10)
[2018-03-06] MEDS: LINAGLIPTIN 5 MG TABLET PO (08:25)
[2018-03-06] MEDS: LISINOPRIL 10 MG TAB PO (08:26)
[2018-03-06] MEDS: CLOPIDOGREL 75 MG TAB PO (08:31)
[2018-03-06] MEDS: ASPIRIN 81 MG TAB PO (08:31)
[2018-03-06] MEDS: DOCUSATE SODIUM 100 MG CAP PO ×2 (08:31→20:09)
[2018-03-06] MEDS: LACTULOSE 30ML CUP PO (15:38)
[2018-03-06] MEDS: SENNA TAB PO (20:09)
[2018-03-06] MEDS: ATORVASTATIN 80 MG TAB PO (20:09)
[2018-03-06] MEDS: morphine 2 MG INJ IV (20:09)
[2018-03-06] MEDS: LORAZEPAM 2 MG INJ IV (21:28)
[2018-03-07] MEDS: ACCU-CHEK XX ×4 (02:00→18:07)
[2018-03-07] MEDS: PANTOPRAZOLE (EC) 40 MG TAB PO ×2 (05:24→18:13)
[2018-03-07 06:04] LABS: ADD MAN DIFF? NO
[2018-03-07 06:16] LABS: WHITE BLOOD COUNT 7.7 10^3/ul (4.8-10.8)
[2018-03-07 06:16] LABS: BASOPHILS % 0.3 % (0.0-2.0); EOSINOPHILS # 0.1 10^3/ul (0.0-0.5); EOSINOPHILS % 1.7 % (0.0-7.0); HEMATOCRIT 35.2 % (37.0-47.0); HEMOGLOBIN 11.3 g/dl (12.0-16.0); LYMPHOCYTES # 1.1 10^3/ul (0.8-2.9); LYMPHOCYTES % 13.8 % (15.0-51.0); MEAN CORPUSCULAR HEMOGLOBIN 28.1 pg (29.0-33.0); MEAN CORPUSCULAR HGB CONC 32.1 g/dl (32.0-37.0); MEAN CORPUSCULAR VOLUME 87.6 fl (82.0-101.0); MEAN PLATELET VOLUME 9.9 fl (7.4-10.4); MONOCYTE # 0.5 10^3/ul (0.3-0.9); MONOCYTES % 6.8 % (0.0-11.0); NEUTROPHIL # 5.9 10^3/ul (1.6-7.5); NEUTROPHILS % 76.1 % (39.0-77.0); PLATELET COUNT 367 10^3/UL (140-415); RED BLOOD COUNT 4.02 10^6/ul (4.20-5.40); RED CELL DISTRIBUTION WIDTH 14.3 % (11.5-14.5)
[2018-03-07] MEDS: LEVOTHYROXINE 75 MCG TAB PO (06:17)
[2018-03-07 06:50] LABS: ANION GAP 10 (8-16); BLOOD UREA NITROGEN 14 mg/dl (7-20); CALCIUM 8.8 mg/dl (8.4-10.2); CARBON DIOXIDE 30 mmol/L (21-31); CHLORIDE 100 mmol/L (97-110); CREATININE 0.94 mg/dl (0.44-1.00); GLUCOSE 155 mg/dl (70-220); POTASSIUM 4.1 mmol/L (3.5-5.1); SODIUM 136 mmol/L (135-144)
[2018-03-07] MEDS: INSULIN ASPART [NOVOLOG] 3 ML PEN SC ×6 (08:00→18:17)
[2018-03-07] MEDS: INSULIN GLARGINE [LANTus] (100 UNITS/ML) SYG SC (08:02)
[2018-03-07] MEDS: ASPIRIN 81 MG TAB PO (08:03)
[2018-03-07] MEDS: METOPROLOL 25 MG TAB PO (08:03)
[2018-03-07] MEDS: CLOPIDOGREL 75 MG TAB PO (08:03)
[2018-03-07] MEDS: POLYETHYLENE GLYCOL 17 GM PACKET PO (08:03)
[2018-03-07] MEDS: LINAGLIPTIN 5 MG TABLET PO (08:03)
[2018-03-07] MEDS: LISINOPRIL 10 MG TAB PO (08:03)
[2018-03-07] MEDS: DOCUSATE SODIUM 100 MG CAP PO (08:04)
[2018-03-07] MEDS: HYDROCODONE/APAP (7.5/325) TAB PO (09:47)
[2018-03-07] MEDS: MAGNESIUM CITRATE 300 ML BTL PO (12:00)
== END 2018-03-07 19:18 | DRG 480 ==
LOC: TEL 02-28 00:15 → ICU 03-02 11:08 → E/R 20:44 → TEL 03-04 18:18 → MS1 22:49
PROC: 0QS606Z Reposition Right Upper Femur with Intramedullary Internal Fixation Device, Open Approach (ICD-10-PCS; principal; 2018-02-27 12:00)
PROC: 30233N1 Transfusion of Nonautologous Red Blood Cells into Peripheral Vein, Percutaneous Approach (ICD-10-PCS; 2018-02-27 12:33)
DX: S72.141A Displaced intertrochanteric fracture of right femur, initial encounter for closed fracture (principal); K85.10 Biliary acute pancreatitis without necrosis or infection; I21.4 Non-ST elevation (NSTEMI) myocardial infarction; N17.9 Acute kidney failure, unspecified; D62 Acute posthemorrhagic anemia; G93.40 Encephalopathy, unspecified; I50.22 Chronic systolic (congestive) heart failure; I11.0 Hypertensive heart disease with heart failure; I25.5 Ischemic cardiomyopathy; I25.10 Atherosclerotic heart disease of native coronary artery without angina pectoris; D63.8 Anemia in other chronic diseases classified elsewhere; E83.42 Hypomagnesemia; E03.9 Hypothyroidism, unspecified; E11.9 Type 2 diabetes mellitus without complications; F41.9 Anxiety disorder, unspecified; K59.00 Constipation, unspecified; W03.XXXA Other fall on same level due to collision with another person, initial encounter; I25.2 Old myocardial infarction; Z95.5 Presence of coronary angioplasty implant and graft; Z79.84 Long term (current) use of oral hypoglycemic drugs; Z79.82 Long term (current) use of aspirin
CPT/HCPCS: 36415; 36430; 71045; 71275; 72170; 72192; 73500; 73530; 74181; 76705; 78582; 80048; 80053; 80061; 80076; 81001; 81003; 82150; 82550; 82553; 82962; 83036; 83540; 83690; 83735; 84100; 84436; 84443; 84479; 84484; 85025; 85610; 85730; 86803; 86850; 86900; 86901; 86920; 87081; 87086; 93005; 93306; 93970; 96361; 96374; 96375; 96376; 97110; 97116; 97163; 97164; 97530; 99285-25